=== PATIENT | female | born 1990 | race Two or more races ===

== ENCOUNTER 2024-07-01 14:01 | Outpatient (CLI) | payer BC ==
[~2024-07-01 14:01] MED LIST: KETO10TA2 PO
[2024-07-01 19:53] LABS: HEMOGLOBIN 13.8 g/dL (11.2-15.7); MEAN CORPUSCULAR HEMOGLOBIN 29.4 pg (25.6-32.2); NEUT % 47.1 % (34.0-71.1); PLATELET COUNT 227 K/uL (163-369); RED BLOOD COUNT 4.69 M/uL (3.93-5.22)
[2024-07-01 19:54] LABS: BASO % 1.1 % (0.1-1.2); EOS # 0.16 (0.04-0.54); EOS % 2.9 % (0.7-7.0); LYMPH # 2.32 (1.18-3.74); MONO # 0.37 (0.24-0.82); MONO % 6.7 % (4.7-12.5)
[2024-07-01 21:41] LABS: URINE APPEARANCE Clear; URINE BACTERIA 18.3 uL (0.0-1933); URINE BILIRRUBIN Negative (NEGATIVE); URINE BLOOD Negative; URINE COLOR Yellow; URINE EPITHELIAL CELLS 5.5 uL (0.0-38.8); URINE GLUCOSE Negative (NEGATIVE); URINE KETONE Trace (NEGATIVE); URINE LEUKOCYTE Negative; URINE NITRATE Negative; URINE PROTEIN Negative (NEGATIVE); URINE RBC 3.8 uL (0.0-20.8); URINE UROBILINOGEN 0.2 E.U./dl
== END 2024-07-01 15:30 | disposition home or self-care (01) ==
LOC: LAB 14:01
PROVIDERS: ATTEND Student in an Organized Health Care Education/Training Program
DX: R10.2 Pelvic and perineal pain (principal); N39.0 Urinary tract infection, site not specified